=== PATIENT | female | born 1985 | race Caucasian/White ===

== ENCOUNTER 2019-09-04 12:22 | Emergency (ER) | payer OTHER ==
[2019-09-04 12:26] VITALS: PULSE 84; TEMP 97.8; BMI 29.7
--- NOTE | 2019-09-04 12:36 | PDOC ---
History of Present Illness - General Chief Complaint: Back Pain Stated Complaint: BACK PAIN Time Seen by Provider: 09/04/19 12:24 - History of Present Illness Initial Comments: 09/04/19 12:33 33 F with h/o HTN presenting to ED with 4 days of L upper back pain. Pt denies any injuries or trauma but states that she does a lot of pushing and lifting at work. Pt states that the pain is in her L upper ribcage and is worse with certa in movements and deep breaths. However, she denies any SOB. Denies chest pain. Denies F/C. Denies cough. No recent travel or sick contacts. Pt notes that she has been taking motrin with minimal relief. Denies weakness/numbness in any extremity. No flank pain or dysuria. Not on OCPs. LMP was earlier this month. Past History - Past Medical History Allergies/Adverse Reactions: Allergies Allergy/AdvReac Type Severity Reaction Status Date / Time shrimp Allergy Verified 09/04/19 12:22 Home Medications: Ambulatory Orders Amlodipine Besylate 2.5 mg PO DAILY 09/04/19 COPD: No HTN: Yes - Surgical History Appendectomy: Yes - Psycho Social/Smoking Cessation Hx Smoking History: Never smoked Have you smoked in the past 12 months: No Information on smoking cessation initiated: No Hx Alcohol Use: No Review of Systems - Review of Systems Comments:: 09/04/19 12:34 "GENERAL: Awake, alert, and fully oriented, in no acute distress. HEAD: No signs of trauma EYES: PERRLA, EOMI, sclera anicteric, conjunctiva clear ENT: Auricles normal inspection, hearing grossly normal, nares patent, oropharynx clear without exudates. Moist mucosa NECK: Nontender, no stepoffs, Normal ROM, supple, no lymphadenopathy, JVD, or masses LUNGS: Breath sounds equal, clear to auscultation bilaterally. No wheezes, and no crackles HEART: Regular rate and rhythm, normal S1 and S2, no murmurs, rubs or gallops ABDOMEN: Soft, nontender, normoactive bowel sounds. No guarding, no rebound. No masses BACK: + L upper back pain EXTREMITIES: Normal range of motion, no edema. No clubbing or cyanosis. No cords, erythema, or tenderness NEUROLOGICAL: Cranial nerves II through XII intact. 5/5 strength and sensation in all extremities, Normal speech, normal gait, normal cerebellar function SKIN: Warm, Dry, normal turgor, no rashes or lesions noted. *Physical Exam - Vital Signs Last Vital Signs Temp Pulse Resp BP Pulse Ox 97.8 F 84 18 172/116 H 100 09/04/19 12:22 09/04/19 12:22 09/04/19 12:22 09/04/19 12:22 09/04/19 12:22 - Physical Exam 09/04/19 12:35 "GENERAL: Awake, alert, and fully oriented, in no acute distress. HEAD: No signs of trauma EYES: PERRLA, EOMI, sclera anicteric, conjunctiva clear ENT: Auricles normal inspection, hearing grossly normal, nares patent, oropharynx clear without exudates. Moist mucosa NECK: Nontender, no stepoffs, Normal ROM, supple, no lymphadenopathy, JVD, or masses LUNGS: Breath sounds equal, clear to auscultation bilaterally. No wheezes, and no crackles HEART: Regular rate and rhythm, normal S1 and S2, no murmurs, rubs or gallops ABDOMEN: Soft, nontender, normoactive bowel sounds. No guarding, no rebound. No masses EXTREMITIES: Normal range of motion, no edema. No clubbing or cyanosis. No cords, erythema, or tenderness NEUROLOGICAL: Cranial nerves II through XII intact. 5/5 strength and sensation in all extremities, Normal speech, normal gait, normal cerebellar function SKIN: Warm, Dry, normal turgor, no rashes or lesions noted. BACK: no midline TTP, no stepoffs ED Treatment Course - RADIOLOGY Radiology Studies Ordered: Category Date Time Status CHEST PA & LAT [RAD] Stat Radiology 09/04/19 12:32 Ordered Medical Decision Making - Medical Decision Making 09/04/19 12:35 33 F with L upper back pain. Likely msk in etiology. Pt reports worsening pain with deep inspiration, but vitals normal, PERC score 0. PE unlikely. Pt denies CP or SOB, making cardiac etiology unlikely. No fevers to suggest infectious process. - CXR - UPT Discharge - Discharge Information Problems reviewed: Yes Clinical Impression/Diagnosis: Back pain Condition: Stable Disposition: HOME - Follow up/Referral Referrals: Deisi Terry [Primary Care Provider] - - Patient Discharge Instructions Patient Printed Discharge Instructions: DI for Thoracic Back Pain Additional Instructions: Your back pain is most likely due to a muscle strain. Rest and avoid any strenuous activity for the next few days. If you experience worsening pain, pain in your chest, difficulty breathing, fevers, cough, or any other concerning symptoms, return to the ER immediately. Otherwise, follow up with your primary doctor within 3 days for further evaluation. You also need to have your blood pressure re-checked by your primary doctor, as it was slightly elevated today. Uncontrolled blood pressure can eventually lead to kidney disease, heart disease, other serious illness, disability, or even . - Post Discharge Activity Work/Back to School Note: Back to Work
[2019-09-04 13:15] VITALS: BP 163/101
== END 2019-09-04 13:15 | disposition home or self-care (01) ==
LOC: FER 12:22
DX: M54.9 Dorsalgia, unspecified (principal)
CPT/HCPCS: 71046-TC-FY; 84703; 99283-25